=== PATIENT | female | born 1970 | race Caucasian/White ===

== ENCOUNTER 2024-12-13 08:29 | Emergency (ER) | payer OTHER ==
[~2024-12-13] VITALS: Ht 167.6 cm; Wt 68.0 kg
[~2024-12-13 08:29] MED LIST: AMOXICILLIN500 MG PO; BP PILL; CIPRO500 MG OR; CIPROFLOXACN500 MG PO; LORTAB5 PO; MIRALAX3350 NF PO; MOTRIN200 MG PO; NO HOME MEDS; ONDANSETRON4 MG PO; PYRIDIUM200 MG OR; ULTRAM50 MG PO
[2024-12-13] MEDS ORDERED: KETOROLAC TROMETHAMINE 30 MG/ML SDV IM ONE (08:45)
[2024-12-13] MEDS ORDERED: ACETAMINOPHEN 500 MG TAB PO ONE (08:45)
[2024-12-13] MEDS ORDERED: TRAMADOL HYDROC50 M1 PO ×2 (10:30→14:51)
[2024-12-13] MEDS ORDERED: EC-NAPROXEN500 MG PO ×2 (10:30→14:51)
[2024-12-13] MEDS ORDERED: MORPHINE SULFATE 4 MG/ML VIAL IM ONE (10:45)
== END 2024-12-13 10:54 | disposition home or self-care (01) | DRG 313 ==
LOC: ED 08:29
DX: R07.89 Other chest pain (principal); M25.551 Pain in right hip; I10 Essential (primary) hypertension